=== PATIENT | male | born 1965 | race Caucasian/White ===

== ENCOUNTER 2019-03-28 13:33 | Day surgery (SDC) | payer OTHER, MEDICAID ==
[~2019-03-28] VITALS: Ht 170.8 cm; Wt 79.0 kg
[2019-03-28] VITALS (13 sets, daily range): BP systolic 149–183; BP diastolic 101–120
[2019-03-28] MEDS ORDERED: NS IV 1000 ML 1,000 ML IV SCH (14:00)
[2019-03-28] MEDS ORDERED: fentaNYL INJECTION 100 MCG/2 ML AMP IVP ONE (14:00)
--- NOTE | 2019-03-28 14:01 | ED GU-Male ---
General Chief Complaint: Male Reproductive Stated Complaint: HERNIA Source: patient Exam Limitations: no limitations History of Present Illness Date Seen by Provider: Mar 28, 2019 Time Seen by Provider: 13:45 Initial Comments Patient presents with 3 day progression of his right sided hernia. Patient with known existing, rather small right hernia which got suddenly bigger 3 days ago after lifting and since then has been Getting progressively more swollen and p ainful. History of left inguinal hernia repair approximately one year ago here at [place]. Allergies and Home Medications Allergies Coded Allergies: Penicillins (Unverified Allergy, Unknown, 03/28/19) Patient Home Medication List Home Medication List Reviewed: Yes Review of Systems Review of Systems Constitutional: no symptoms reported, see HPI; No dizziness, No fever; malaise; No weakness Respiratory: no symptoms reported; No cough, No short of breath Cardiovascular: No chest pain, No edema, No palpitations Gastrointestinal: abdominal pain (RLQ); No constipation, No diarrhea, No loss of appetite, No nausea, No vomiting Genitourinary: see HPI, other (swelling and pain right scrotum) Musculoskeletal: No back pain, No joint pain Skin: No change in color, No lesions, No rash Past Atqmiln-Utkbil-Qlsxzv Hx Past Med/Social Hx: Reviewed Nursing Past Med/Soc Hx Patient Social History Recent Foreign Travel: No Physical Exam Vital Signs Vital Signs - First Documented 03/28/19 13:36 Temp 36.3 Pulse 86 Resp 18 B/P (MAP) 144/92 (109) Pulse Ox 100 O2 Delivery Room Air Capillary Refill : Height, Weight, BMI Height: '" Weight: lbs. oz. kg; BMI Method: General Appearance: WD/WN, mild distress Cardiovascular: normal peripheral pulses, regular rate, rhythm, no edema Respiratory: chest non-tender, lungs clear, normal breath sounds Gastrointestinal: normal bowel sounds, soft, guarding (RLQ and inguinal. Gross swelling R inguinal and R scrotum, firm and severely tender. No change of skin color. No palpable testicle 2 to swelling and pain) Genital/Rectal: tenderness (see above) Back: normal inspection, no CVA tenderness Neurologic/Psychiatric: no motor/sensory deficits, normal mood/affect, oriented x 3 Skin: normal color, warm/dry Progress/Results/Core Measures Suspected Sepsis SIRS Temperature: Pulse: Respiratory Rate: Laboratory Tests 03/28/19 14:00: White Blood Count 4.8 Blood Pressure / Mean: Laboratory Tests 03/28/19 14:00: Creatinine 0.93, Platelet Count 196, Total Bilirubin 0.3 Results/Orders Lab Results Laboratory Tests Test 03/28/19 14:00 Range/Units White Blood Count 4.8 4.3-11.0 10^3/uL Red Blood Count 4.31 L 4.35-5.85 10^6/uL Hemoglobin 14.0 13.3-17.7 G/DL Hematocrit 42 40-54 % Mean Corpuscular Volume 97 80-99 FL Mean Corpuscular Hemoglobin 32 25-34 PG Mean Corpuscular Hemoglobin Concent 34 32-36 G/DL Red Cell Distribution Width 12.0 10.0-14.5 % Platelet Count 196 130-400 10^3/uL Mean Platelet Volume 9.5 7.4-10.4 FL Neutrophils (%) (Auto) 60 42-75 % Lymphocytes (%) (Auto) 26 12-44 % Monocytes (%) (Auto) 11 0-12 % Eosinophils (%) (Auto) 2 0-10 % Basophils (%) (Auto) 1 0-10 % Neutrophils # (Auto) 2.9 1.8-7.8 X 10^3 Lymphocytes # (Auto) 1.3 1.0-4.0 X 10^3 Monocytes # (Auto) 0.5 0.0-1.0 X 10^3 Eosinophils # (Auto) 0.1 0.0-0.3 10^3/uL Basophils # (Auto) 0.1 0.0-0.1 10^3/uL Sodium Level 140 135-145 MMOL/L Potassium Level 4.0 3.6-5.0 MMOL/L Chloride Level 101 98-107 MMOL/L Carbon Dioxide Level 26 21-32 MMOL/L Anion Gap 13 5-14 MMOL/L Blood Urea Nitrogen 15 7-18 MG/DL Creatinine 0.93 0.60-1.30 MG/DL Estimat Glomerular Filtration Rate > 60 BUN/Creatinine Ratio 16 Glucose Level 85 70-105 MG/DL Calcium Level 9.7 8.5-10.1 MG/DL Corrected Calcium 9.9 8.5-10.1 MG/DL Total Bilirubin 0.3 0.1-1.0 MG/DL Aspartate Amino Transf (AST/SGOT) 78 H 5-34 U/L Alanine Aminotransferase (ALT/SGPT) 88 H 0-55 U/L Alkaline Phosphatase 63 40-136 U/L Total Protein 7.6 6.4-8.2 GM/DL Albumin 3.8 3.2-4.5 GM/DL My Orders Orders - NOEMY PÉREZ DO Urinalysis (03/28/19 13:35) Us Scrotum (Testicle) [id number] (03/28/19 13:45) Ed Iv/Invasive Line Start (03/28/19 13:46) Cbc With Automated Diff (03/28/19 13:46) Comprehensive Metabolic Panel (03/28/19 13:46) Fentanyl Injection (Sublimaze Injection (03/28/19 14:00) Ns Iv 1000 Ml (Sodium Chloride 0.9%) (03/28/19 14:00) Vital Signs/I&O 03/28/19 13:36 Temp 36.3 Pulse 86 Resp 18 B/P (MAP) 144/92 (109) Pulse Ox 100 O2 Delivery Room Air Capillary Refill : Departure Communication (Admissions) Time/Spoke to Consulting Phy: 14:[address] Mathur to discuss history and presentation of Right inguinal hernia. Patient recently ate @ 1130 this morning......will delay surgery until 1930 shaneka mendieta plans to DC home tomorrow. Currently under custody of Lori mendieta presumed plans to release him prior to transfer/ admission/ surgery. Impression Primary Impression: Irreducible right inguinal hernia Disposition: ADMITTED INPATIENT Condition: Stable/Unchanged Admissions Decision to Admit Reason: Admit from ER (General) Decision to Admit/Date: Mar 28, 2019 Time/Decision to Admit Time: 14:10 NOEMY PÉREZ DO Mar 28, 2019 14:01
[2019-03-28 14:11] LABS: HEMATOCRIT 42 % (40-54); MEAN CORPUSCULAR HEMOGLOBIN 32 PG (25-34); MEAN CORPUSCULAR VOLUME 97 FL (80-99); WHITE BLOOD COUNT 4.8 10^3/uL (4.3-11.0)
[2019-03-28 14:12] LABS: BASOPHILS % (AUTO) 1 % (0-10); EOSINOPHILS # (AUTO) 0.1 10^3/uL (0.0-0.3); EOSINOPHILS % (AUTO) 2 % (0-10); LYMPHOCYTES # (AUTO) 1.3 X 10^3 (1.0-4.0); LYMPHOCYTES % (AUTO) 26 % (12-44); MEAN CORPUSCULAR HGB CONC 34 G/DL (32-36); MEAN PLATELET VOLUME 9.5 FL (7.4-10.4); MONOCYTES # (AUTO) 0.5 X 10^3 (0.0-1.0); MONOCYTES % (AUTO) 11 % (0-12); NEUTROPHILS # (AUTO) 2.9 X 10^3 (1.8-7.8); NEUTROPHILS % (AUTO) 60 % (42-75); PLATELET COUNT 196 10^3/uL (130-400)
[2019-03-28 14:13] LABS: BASOPHILS # (AUTO) 0.1 10^3/uL (0.0-0.1)
--- NOTE | 2019-03-28 14:27 | Diagnostic Imaging Report ---
PROCEDURE: US Scrotum. TECHNIQUE: Multiple real-time grayscale images were obtained over the scrotum in various projections bilaterally. INDICATION: Hernia. FINDINGS: A right-sided hernia extends into the upper scrotal sac with peristalsing loops of bowel. Right testicle appears normal. The epididymis is normal. No orchitis or torsion. IMPRESSION: Right inguinal hernia extending into the upper scrotal sac on the right confirmed. Normal appearance of the testicle and epididymis. Dictated by: Dictated on workstation # [id number]
[2019-03-28 14:38] LABS: ALKALINE PHOSPHATASE 63 U/L (40-136); BILIRUBIN,TOTAL 0.3 MG/DL (0.1-1.0); BUN/CREATININE RATIO 16; CALCIUM 9.7 MG/DL (8.5-10.1); CARBON DIOXIDE 26 MMOL/L (21-32); CHLORIDE 101 MMOL/L (98-107); CREATININE SERUM 0.93 MG/DL (0.60-1.30); GFR ESTIMATED > 60; GLUCOSE 85 MG/DL (70-105); SODIUM 140 MMOL/L (135-145)
[2019-03-28 14:39] LABS: ALANINE AMINOTRANSFERASE 88 U/L (0-55); ALBUMIN 3.8 GM/DL (3.2-4.5); TOTAL PROTEIN 7.6 GM/DL (6.4-8.2)
--- NOTE | 2019-03-28 16:50 | NUR ---
Elier Marquez] admitted to room 427-1, with an admitting diagnosis of L inguinal hernia, on 03/28/19 from via , accompanied by .ELIER MARQUEZ introduced to surroundings, call light, bed controls, phone, TV, temperature control, lights, meal times, smoking policy, visitor policy, side rail policy, bathrooms and showers. Patient Rights given to patient in the handbook.ELIER MARQUEZ verbalizes understanding that [facility] is not responsible for the loss or damage to any personal effects or valuables that are kept in the patients posession during their hospitalization. ELIER MARQUEZ verbalizes understanding of Interdisciplinary Patient Education. Patient and/or family were informed about the Rapid Response Team and its purpose.
[2019-03-28] MEDS ORDERED: CATHETER FLUSH 10 ML SYR IV PRN (17:00)
[2019-03-28] MEDS: LACTATED RINGERS 1,000 ML IV SCH (17:23)
[2019-03-28] MEDS: fentaNYL INJECTION 100 MCG/2 ML AMP IV PRN ×2 (17:23→23:11)
[2019-03-28] MEDS ORDERED: FLU QUADRIvalent (5+ YOA) 2019-2020 (AFLURIA) 0.5 ML IM ONE (17:30)
[2019-03-28] MEDS ORDERED: BUP/EPI 0.5% 1:200,000 (SENSORCAINE) 30 ML VIAL ONE (17:57)
[2019-03-28] MEDS ORDERED: SUCCINYLCHOLINE INJ 100 MG/5 ML SYR ONE (18:00)
[2019-03-28] MEDS ORDERED: LIDOCAINE PF 2% 5 ML (XYLOCAINE) VIAL ONE (18:00)
[2019-03-28] MEDS ORDERED: ROCURONIUM 10 MG/ML 5 ML SYRINGE IV ONE (18:00)
[2019-03-28] MEDS ORDERED: ceFAZolin 2 GM/50 ML NS 50 ML IV NR (18:00)
[2019-03-28] MEDS ORDERED: ONDANSETRON 4 MG/2 ML (SDV) Z0FRAN ONE ×2 (18:00→18:19)
[2019-03-28] MEDS ORDERED: proPOfol 200 MG/20 ML (DIPRIVAN) VIAL IV ONE (18:00)
[2019-03-28] MEDS ORDERED: fentaNYL INJECTION 100 MCG/2 ML AMP ONE (18:01)
[2019-03-28] MEDS ORDERED: MIDAZOLAM 2 MG/2 ML (VERSED) VIAL ONE (18:01)
[2019-03-28] MEDS ORDERED: DEXAMETHASONE 10 MG/ML (DECADRON) 1 ML VIAL ONE (18:01)
--- NOTE | 2019-03-28 18:07 | History & Physical-Surgical ---
History of Present Illness History of Present Illness Reason for visit/HPI Surgery asked to consult on pt regarding Incarcerated RIH. HPI per ED: Patient presents with 3 day progression of his right sided hernia. Patient with known existing, rather small right hernia which got suddenly bigger 3 days ago after lifting and since then has been Getting progressively more swollen and painful. History of left inguinal hernia repair approximately one year ago here at [place]. When I spoke to pt this evening he states that prior to a week ago he is not even sure there was a hernia on the right; although "maybe a small bulge". He states has not had any pain in that area; but this reminds him exactly like when he had the Left inguinal hernia. He rated pain as 8 out of 10 at its worst, but now after pain meds it is a 3. He states pain radiates down into his testicle. Movement, coughing and lifting makes the pain worse and lying still makes it better. Date of Admission Mar 28, 2019 at 15:26 Time Seen by a Provider: 17:37 I consulted on this patient on 03/28/19 18:01 Attending Physician Noe Ha DO Admitting Physician Yeyo Sims MD Consult Allergies and Home Medications Allergies Coded Allergies: Penicillins (Unverified Allergy, Unknown, 03/28/19) Patient Home Medication List Home Medication List Reviewed: Yes Past Rkabglk-Kqoxce-Nfbuez Hx Patient Social History Alcohol Use: Regular Use Number of Drinks Today: 4 Recreational Drug Use: No Smoking Status: Current Everyday Smoker Type Used: Cigarettes 2nd Hand Smoke Exposure: No Recent Foreign Travel: No Contact w/Someone Who Travel: No Recent Infectious Disease Expo: No Recent Hopitalizations: No Physical Abuse Screen: No Sexual Abuse: No Immunizations Up To Date PED Vaccines UTD: No Seasonal Allergies Seasonal Allergies: No Surgeries History of Surgeries: Yes (HERNIA LEFT SIDE) Respiratory History of Respiratory Disorde: No Cardiovascular History of Cardiac Disorders: No Neurological History of Neurological Disord: No Genitourinary History of Genitourinary Disor: No Gastrointestinal History of Gastrointestinal Di: No Gastrointestinal Disorders: Hiatal Hernia Musculoskeletal History of Musculoskeletal Dis: No Endocrine History of Endocrine Disorders: No HEENT History of HEENT Disorders: Yes (Tonsilectomy) Loss of Vision: Denies Hearing Impairment: Denies Cancer History of Cancer: No Psychosocial History of Psychiatric Problem: No Integumentary History of Skin or Integumenta: No Blood Transfusions History of Blood Disorders: No Adverse Reaction to a Blood Tr: No Family Medical History Significant Family History: Cancer (Denies), Hypertension (both parents) Review of Systems Constitutional: No chills, No diaphoresis, No malaise EENTM: No blurred vision, No double vision, No mouth pain, No mouth swelling, No epistaxis, No throat swelling Respiratory: No cough, No dyspnea on exertion, No short of breath Cardiovascular: No chest pain, No edema, No palpitations Gastrointestinal: abdominal pain; No loss of appetite, No nausea, No vomiting Genitourinary: No dysuria, No frequency, No hematuria Musculoskeletal: No joint pain, No joint swelling, No muscle stiffness Skin: No change in color, No change in hair/nails Psychiatric/Neurological: Denies Anxiety, Denies Depressed, Denies Seizure, Denies Tremors pt denies any hx of abnormal bleeding or bruising Physical Exam Vital Signs Vital Signs - First Documented 03/28/19 13:36 Temp 36.3 Pulse 86 Resp 18 B/P (MAP) 144/92 (109) Pulse Ox 100 O2 Delivery Room Air Capillary Refill : Less Than 3 Seconds Height, Weight, BMI Height: '" Weight: lbs. oz. kg; 27.08 BMI Method: General Appearance: No Apparent Distress, WD/WN Eyes: Bilateral Eye PERRL, Bilateral Eye EOMI HEENT: Pharynx Normal, Moist Mucous Membranes; No Scleral Icterus (L), No Scleral Icterus (R) Neck: Full Range of Motion, Non Tender, Supple Respiratory: Chest Non Tender, Lungs Clear, Normal Breath Sounds, No Accessory Muscle Use, No Respiratory Distress Cardiovascular: Regular Rate, Rhythm, No Edema, No Murmur Gastrointestinal: No Organomegaly, Soft, Hernia (incarcerated RIH) Back: No CVA Tenderness, No Vertebral Tenderness Extremity: Normal Capillary Refill, Normal Inspection, Normal Range of Motion, Non Tender, No Calf Tenderness, No Pedal Edema Neurologic/Psychiatric: Alert, Oriented x3, No Motor/Sensory Deficits, Normal Mood/Affect, 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 Skin: Normal Color, Warm/Dry Lymphatic: No Adenopathy (neck, axilla or groin) Data Review Labs Laboratory Tests 03/28/19 14:00: White Blood Count 4.8, Red Blood Count 4.31L, Hemoglobin 14.0, Hematocrit 42, Mean Corpuscular Volume 97, Mean Corpuscular Hemoglobin 32, Mean Corpuscular Hemoglobin Concent 34, Red Cell Distribution Width 12.0, Platelet Count 196, Mean Platelet Volume 9.5, Neutrophils (%) (Auto) 60, Lymphocytes (%) (Auto) 26, Monocytes (%) (Auto) 11, Eosinophils (%) (Auto) 2, Basophils (%) (Auto) 1, Neutrophils # (Auto) 2.9, Lymphocytes # (Auto) 1.3, Monocytes # (Auto) 0.5, Eosinophils # (Auto) 0.1, Basophils # (Auto) 0.1, Sodium Level 140, Potassium Level 4.0, Chloride Level 101, Carbon Dioxide Level 26, Anion Gap 13, Blood Urea Nitrogen 15, Creatinine 0.93, Estimat Glomerular Filtration Rate > 60, BUN/C reatinine Ratio 16, Glucose Level 85, Calcium Level 9.7, Corrected Calcium 9.9, Total Bilirubin 0.3, Aspartate Amino Transf (AST/SGOT) 78H, Alanine Aminotransferase (ALT/SGPT) 88H, Alkaline Phosphatase 63, Total Protein 7.6, Albumin 3.8 Radiology PROCEDURE: US Scrotum. TECHNIQUE: Multiple real-time grayscale images were obtained over the scrotum in various projections bilaterally. INDICATION: Hernia. FINDINGS: A right-sided hernia extends into the upper scrotal sac with peristalsing loops of bowel. Right testicle appears normal. The epididymis is normal. No orchitis or torsion. IMPRESSION: Right inguinal hernia extending into the upper scrotal sac on the right confirmed. Normal appearance of the testicle and epididymis. Dictated by: Dictated on workstation # [id number] Dict: 03/28/19 1422 Trans: 03/28/19 1709 [id number] Interpreted by: CHUCKIE MILLIGAN Assessment/Plan Assessment/Plan Admission Diagonsis Incarcerated [facility] Admission Status: Observation Assessment/Plan Incarcerated [facility] Plan is npo, IV fluids, pain control, anti-emetics and to OR for right inguinal hernia repair. Procedure will be done open with probable mesh placement. We are doing surgery now because there is a risk of strangulation with so much bowel through the inguinal ring; it has been sudden in onset and not gradual. Procedure discussed with pt; risks and complications not limited to pain, bleeding, infection, scar, damage to bowel and need for further procedure. All questions answered to his satisfaction. Will probably be able to go home tomorrow. Clinical Quality Measures DVT/VTE Risk/Contraindication: Risk Factor Score Per Nursin RFS Level Per Nursing on Admit: 2=Moderate NOE HA DO Mar 28, 2019 18:06
--- NOTE | 2019-03-28 18:08 | NUR ---
Surgical consent signed and in the chart. Nasal swabs obtained and sent to lab.
[2019-03-28] MEDS ORDERED: morphine INJ 10 MG/ML 1ML (SYR OR VIAL) ONE (18:19)
[2019-03-28] MEDS: LACTATED RINGERS 1,000 ML IV PRN ×2 (19:56→20:47)
[2019-03-28] MEDS: CLINDAMYCIN 600 MG/4ML (CLEOCIN) VIAL ONE (20:05)
[2019-03-28] MEDS ORDERED: CLINDAMYCIN 600 MG/50 ML IVPB 50 ML IV NR (20:15)
[2019-03-28] MEDS ORDERED: GLYCOPYRROLATE 0.2 MG/ML (ROBINUL) 2 ML VIAL ONE (20:54)
[2019-03-28] MEDS ORDERED: NEOSTIGMINE 3 MG/3 ML VIAL ONE (20:54)
[2019-03-28] MEDS ORDERED: SEVOFLURANE (ULTANE) 15 ML INHAL SOLN ONE ×3 (20:55→20:58)
[2019-03-28] MEDS ORDERED: LACTATED RINGERS 1,000 ML IV SCH (20:57)
--- NOTE | 2019-03-28 20:57 | Progress Note-Post Operative ---
Post-Operative Progess Note Surgeon (s)/Cupola Tapper Helper (s) Surgeon YANELI HA DO Cupola Tapper Helper: Ernst Pre-Operative Diagnosis Incarcerated RIH Post-Operative Diagnosis Incarcerated indirect RIH with direct component cord lipoma Procedure & Operative Findings Date of Procedure 03/28/19 Procedure Performed/Findings RIH with mesh Exc of cord lipoma Anesthesia Type GET Estimated Blood Loss Estimated blood loss (mL): less than 5ml Specimens/Packing Specimens Removed hernia sac, cord lipoma YANELI HA DO Mar 28, 2019 20:57
[2019-03-28] MEDS ORDERED: ONDANSETRON 4 MG/2 ML (SDV) Z0FRAN IVP PRN ×2 (21:00→21:30)
[2019-03-28] MEDS ORDERED: LABETALOL HCL 20 MG/4 ML VIAL ONE (21:28)
[2019-03-28] MEDS ORDERED: morphine INJ 10 MG/ML 1ML (SYR OR VIAL) IVP ONE (21:30)
[2019-03-28] MEDS ORDERED: MEPERIDINE (DEMEROL) INJ 50 MG/ML IVP ONE (21:30)
[2019-03-28] MEDS ORDERED: PROMETHAZINE INJ 25 MG/ML (PHENERGAN) AMP IVP ONE (21:30)
[2019-03-28] MEDS ORDERED: HYDROmorphone 2 MG/ML VIAL (DILAUDID) IV ONE (21:30)
[2019-03-28] MEDS: LABETALOL HCL 100 MG/20 ML VIAL IV PRN ×2 (22:00→22:10)
--- NOTE | 2019-03-28 23:00 | NUR ---
PT RETURNED FROM PACU AT 2235 ACCOMPANIED BY PACU NURSE AND PCT. RC CAPPS GAVE THIS RN REPORT. RC CAPPS REPORTED THAT SHE HAD A HARD TIME CONTROLLING HIS BP IN PACU AND HAD ADMIN LABETALOL SEVERAL TIMES IV. PT IS ALERT AND ORIENTED, HE HAD 100ML LEFT OF NS FROM PACU ALONG. DR HA PUT ALL ORDERS IN FOR PT POST OP. HE IS NOW RESTING IN BED AND WATCHING TV. THIS RN STARTED HIM ON CLEAR LIQUID DIET AND HE HAS BEEN TOLERATING SPRITE AND BROTH WITHOUT ANY N/V.
[2019-03-29 00:10] VITALS: BP 153/98
--- NOTE | 2019-03-29 01:57 | OPERATIVE REPORT ---
DATE OF SERVICE: PREOPERATIVE DIAGNOSIS: Incarcerated right inguinal hernia. POSTOPERATIVE DIAGNOSES: 1. Incarcerated indirect right inguinal hernia with direct component. 2. Cord lipoma. PROCEDURES: 1. Right inguinal herniorrhaphy with mesh placement. 2. Excision of cord lipoma. SURGEON: Noe Mathur DO. SECURITY OPERATIONS SPECIALIST: Bharat Dukes DO. ANESTHESIA: General endotracheal tube. SPECIMENS: 1. Hernia sac. 2. Cord lipoma. BLOOD LOSS: Less than 5 mL. FLUIDS: Per anesthesia. POSTOPERATIVE CONDITION: Stable. INDICATION FOR PROCEDURE: The patient is a 53-year-old male, who had increasing pain and bulge in the right inguinal region, had an ultrasound, which showed intestine stuck in the right scrotum. FINDINGS: The patient had a very large indirect inguinal hernia with some intestine that was easily reduced and had a large cord lipoma as well. PROCEDURE NOTE: After informed consent was obtained, the patient was brought to the operating room, placed on the table in supine position, sterilely prepped and draped in normal fashion. Local lidocaine was used to perform an ilioinguinal nerve block as well as pubic tubercle block and infiltrated the right inguinal region with local, then made an incision with #15 blade, carried down through the skin and subcutaneous tissue, then deepened down through skin and subcutaneous tissue with Bovie electrocautery down to the fascia of the external oblique. External oblique fascia infiltrated with local, then incised through the external inguinal ring with Bovie electrocautery, then able to grasp the cord and cord structures and get under them at the pubic tubercle, placed a [place] drain, pulled in inferolateral direction, started teasing off the hernia sac by looking superiorly, medially; able to find the hernia sac and carefully lift this up, taking it off the cord and cord structures, watched some tissue retract back into the abdomen, able to get the cord and hernia sac off and opened it up and then continued to free it up off the cord and cord structures. It was very large indirect hernia sac, could see some bowel, grasped this and pulled this up into the inguinal canal, it looked viable. No signs of any kind of strangulation. At this point, I then elected to do an 0 Vicryl pursestring suture to tie the hernia sac off, did a pursestring suture and then tied around the hernia sac two more times with the 0 Vicryl suture, then cut the hernia sac off with Bovie electrocautery, watched the sac retracted in. There was a cord lipoma. This was removed and passed off table to make it easier, also then noted a direct floor defect, elected to close the floor of the inguinal canal with 0 Vicryl [id number] suture and then a 2-0 Vicryl [id number] suture to close the floor, then placed a right-sided Parietex mesh, trimmed to fit into the canal, sutured to pubic tubercle and encircled the cord with a precut hole, laid in very nicely, placed the rest of the mesh up under the external oblique fascia. Copiously irrigated with normal saline, suctioned this out and then elected to close the external oblique fascia with a 3-0 Vicryl running suture, thereby recreating the external inguinal ring and internal inguinal ring had been recreated by the mesh. Flaquita's fascia was then closed with 3-0 Vicryl 2 interrupted sutures and then closed the skin with 4-0 undyed Monocryl in running subcuticular fashion. Area was cleaned and dried and Dermabond placed as well as bandage. The patient tolerated the procedure. Sponge and needle count correct at the end of the case. Dr. Dukes assisted in this case, helping to make incisions, close incisions, identify anatomy and hold anatomy out of the way. Job ID: [id number] DocumentID: [id number] Dictated Date: 03/28/2019 21:28:28 Signal Manager Date: 03/29/2019 01:56:09 Dictated By: NOE MATHUR DO
[2019-03-29] MEDS: LACTATED RINGERS 1,000 ML IV SCH ×2 (01:59→10:22)
[2019-03-29 04:00] VITALS: BP 156/102
[2019-03-29] MEDS: HYDROcodone/APAP 7.5 MG/325 MG (LORTAB, LORCET PLUS) TABLET PO PRN ×2 (05:13→10:08)
[2019-03-29 05:47] VITALS: BP 138/92
--- NOTE | 2019-03-29 07:49 | Anesthesia-General Post-Op ---
General Patient Condition Mental Status/LOC: Same as Preop Cardiovascular: Satisfactory Nausea/Vomiting: Absent Respiratory: Satisfactory Pain: Controlled Complications: Absent Post Op Complications Complications None Follow Up Care/Instructions Patient Instructions None needed. Anesthesia/Patient Condition Patient Condition Patient is doing well, no complaints, stable vital signs, no apparent adverse anesthesia problems. No complications reported per nursing. RENEE FINN CRNA Mar 29, 2019 07:49
[2019-03-29] MEDS ORDERED: PANTOPRAZOLE 40 MG (PROTONIX) VIAL IVP SCH (09:00)
--- NOTE | 2019-03-29 09:43 | Progress Note - Surgery ---
Subjective Time Seen by a Provider: 08:30 Subjective/Events-last exam Pt seen and examined, tolerating diet and pain well controlled. Review of Systems General: No Chills, No Night Sweats Pulmonary: No Dyspnea, No Cough Gastrointestinal: No: Nausea, Vomiting Objective Exam Vital Signs Date Time Temp Pulse Resp B/P (MAP) Pulse Ox O2 Delivery O2 Flow Rate FiO2 03/29/19 08:00 98 Room Air 5.00 03/29/19 05:47 138/92 (107) 03/29/19 04:00 36.9 84 16 156/102 (120) 98 Room Air 03/29/19 00:10 36.5 86 18 153/98 (116) 98 Room Air 03/28/19 22:35 36.6 72 16 149/101 (117) 96 Room Air 03/28/19 22:35 Room Air 03/28/19 22:30 36.4 16 153/109 (124) 96 Room Air 03/28/19 22:20 16 153/106 (122) 100 Room Air 03/28/19 22:15 Simple Mask 5 03/28/19 22:10 16 161/115 (130) 100 03/28/19 22:00 Simple Mask 5 03/28/19 22:00 16 166/116 (133) 100 Room Air 03/28/19 21:50 16 173/120 (137) 100 Simple Mask 5 03/28/19 21:45 Simple Mask 5 03/28/19 21:40 16 166/114 (131) 100 Simple Mask 8 03/28/19 21:30 Simple Mask 8 03/28/19 21:30 16 170/112 (131) 100 Simple Mask 8 03/28/19 21:20 16 176/118 (137) 100 Simple Mask 8 03/28/19 21:13 36.1 16 175/120 (138) 100 Simple Mask 8 03/28/19 21:13 Simple Mask 8 03/28/19 19:51 36.7 85 18 164/110 (128) 100 Room Air 03/28/19 19:30 100 Room Air 03/28/19 17:00 99 Room Air 03/28/19 16:50 36.8 81 18 183/115 99 Room Air 03/28/19 16:50 36.8 81 18 183/115 (137) 99 Room Air 1/27/20 16:11 36.2 82 18 124/68 99 Room Air 03/28/19 13:36 36.3 86 18 144/92 (109) 100 Room Air I & O 03/29/19 07:00 Intake Total 2550 ml Balance 2550 ml Capillary Refill : Less Than 3 Seconds General Appearance: No Apparent Distress, WD/WN Respiratory: Chest Non Tender, Lungs Clear, Normal Breath Sounds, No Accessory Muscle Use, No Respiratory Distress Cardiovascular: Regular Rate, Rhythm, No Murmur Gastrointestinal: other (incision is c/d/i) Results Lab Laboratory Tests 03/28/19 14:00: White Blood Count 4.8, Red Blood Count 4.31L, Hemoglobin 14.0, Hematocrit 42, Mean Corpuscular Volume 97, Mean Corpuscular Hemoglobin 32, Mean Corpuscular Hemoglobin Concent 34, Red Cell Distribution Width 12.0, Platelet Count 196, Mean Platelet Volume 9.5, Neutrophils (%) (Auto) 60, Lymphocytes (%) (Auto) 26, Monocytes (%) (Auto) 11, Eosinophils (%) (Auto) 2, Basophils (%) (Auto) 1, Neutrophils # (Auto) 2.9, Lymphocytes # (Auto) 1.3, Monocytes # (Auto) 0.5, Eosinophils # (Auto) 0.1, Basophils # (Auto) 0.1, Sodium Level 140, Potassium Level 4.0, Chloride Level 101, Carbon Dioxide Level 26, Anion Gap 13, Blood Urea Nitrogen 15, Creatinine 0.93, Estimat Glomerular Filtration Rate > 60, BUN/Creatinine Ratio 16, Glucose Level 85, Calcium Level 9.7, Corrected Calcium 9.9, Total Bilirubin 0.3, Aspartate Amino Transf (AST/SGOT) 78H, Alanine Aminotransferase (ALT/SGPT) 88H, Alkaline Phosphatase 63, Total Protein 7.6, Albumin 3.8 Assessment/Plan Assessment/Plan Assessment/Plan S/P RIH repair D/C IV and D/C home Clinical Quality Measures DVT/VTE Risk/Contraindication: Risk Factor Score Per Nursin RFS Level Per Nursing on Admit: 2=Moderate YANELI HA DO Mar 29, 2019 09:43
--- NOTE | 2019-03-29 09:45 | Discharge Inst-Surgical ---
Discharge Inst-Surgical Depart Medication/Instructions New, Converted or Re-Newed RX: Other (take ibuprofen or tylenol for pain) Patient Instructions Follow up Appt: Make appointment for 1 week. [phone] Instructions: No lifting greater than 20 pounds. No strenuous activity. May shower in 24 hours, no tub bath or soaking. Use incentive spirometer at home as directed. No Smoking Skin/Wound Care: May remove bandages in am. You need to leave the Dermabond on incision it will fall off on it's own. Symptoms to Report: Appetite Changes, Extremity Discoloration, Numbness/Tingling, Swelling Increased, Bleeding Excessive, Eyesight Changes, Pain Increased, Urine Color Change, Constipation(Persistent), Fever over 101 degree F, Pain/Pressure in chest, Urinating Difficulty, Cough Up/Vomit Blood, Heart Beat Irreg/Pounding, Pain/Pressure in jaw, Cramps in feet or legs, Lightheadedness, Pain/Pressure in shoulder, Diarrhea(Persistent), Memory Changes Suddenly, Questions/Concerns, Weight gain consecutive days, Dizziness/Fainting, Nausea/Vomiting, Shortness of Breath, Weight gain over 2 pounds If questions or concerns contact your physician Or seek help at emergency department. Activity Activity as Tolerated: Yes Activity Instructions: Avoid Stress to Incision Driving Instructions: You May Drive Diet Discharge Diet: No Restrictions Diet After 24 Hours: Clear Liquid if Nauseous If Any Problems/Questions/Issu: Contact Your Physician, Go to Emergency Room Skin/Wound Care Infection Signs and Symptoms: Increased Redness, Foul Odor of Wound, Increased Drainage, Skin Itchy or Has a Rash, Increased Swelling, Temperature Above 101 F Bathing Instructions: Shower Stitches/[place]/Dermabond Dis: YANELI Cesar DO Mar 29, 2019 09:45
--- NOTE | 2019-03-29 10:20 | NUR ---
MARIO CHAMBERS demonstrates understanding of discharge instructions and accurately returns instructions upon questioning. Copy of Post-Discharge Instructions given to patient. Patient refused flu vaccine at this time. Patients belongings returned to . Patient discharged from [facility] on 03/29/19 at 1020. MARIO CHAMBERS left floor via , accompanied by .
[2019-03-29] MEDS ORDERED: ENOXAPARIN 40 MG/0.4 ML (LOVENOX) SYR SC SCH (21:00)
--- NOTE | 2019-04-05 11:28 | Physician Query-Final Dx ---
MICKI LADD 04/05/19 1128: Final Diagnosis Give Final Diagnosis Please give Final Diagnosis YANELI HA DO 04/06/19 1511: Final Diagnosis Give Final Diagnosis Incarcerated Right Indirect inguinal hernia, small direct component Cord lipoma MICKI LADD Apr 05, 2019 11:28 YANELI HA DO Apr 06, 2019 15:11
== END 2019-03-29 10:25 | disposition home or self-care (01) ==
LOC: ER FS 13:35 → 4TH 15:26 → SDC 15:26 → UNDOADMIN 15:26 → 4TH 15:26 → UNDODISIN 03-29 10:25 → SDC 03-29 10:25
PROVIDERS: ATTEND Surgery
DX: K40.31 Unilateral inguinal hernia, with obstruction, without gangrene, recurrent (principal); D17.6 Benign lipomatous neoplasm of spermatic cord; F17.210 Nicotine dependence, cigarettes, uncomplicated; Z88.0 Allergy status to penicillin; Z82.49 Family history of ischemic heart disease and other diseases of the circulatory system
CPT/HCPCS: 36415; 76870; 80053; 85025; 87081; 88302; 94664; 96374

== ENCOUNTER → 2020-12-07 | Outpatient (CLI) | payer MEDICAID | LOC: LAB FS 10:00 | PROVIDERS: ATTEND Orthopaedic Surgery | DX: Z01.812 Encounter for preprocedural laboratory examination (principal); Z20.822 Contact with and (suspected) exposure to COVID-19 | CPT/HCPCS: 87635 ==

== ENCOUNTER 2021-09-22 09:13 | Emergency (ER) | payer MEDICAID ==
[2021-09-22] MEDS ORDERED: KETOROLAC 30 MG/ML VIAL IVP STA (09:32)
[2021-09-22] MEDS ORDERED: CLINDAMYCIN 600 MG/50 ML IVPB 50 ML IV STA (09:32)
[2021-09-22] MEDS ORDERED: NS IV 1000 ML 1,000 ML IV STA (09:32)
--- NOTE | 2021-09-22 09:40 | ED Lower Extremity ---
General Chief Complaint: Lower Extremity Stated Complaint: LT LEG SWELLING Nursing Triage Note: Patient presents to the ED with c/o left lower leg redness and swelling. Reports that he was out mowing the yard yesterday and noticed the swelling when he came in. Denies any known injury. Does report that he had some glass in his knee 3 days ago. Denies any pain. Source: patient History of Present Illness Date Seen by Provider: Sep 22, 2021 Time Seen by Provider: 09:16 Initial Comments 55 yo male presenting by private vehicle with complaint of swelling, redness and increased warmth to the LLE. He felt that this started yesterday for him while he was out mowing the yard. he is waiting to get a hip replacement on the right so he reports he usually favors that side and depends on the Left side more. He started having discomfort while mowing so he went inside and noticed his knee and leg felt "puffy through his jeans. When he looked at his leg it was swollen. he reports taking a shower and elevating the leg and it got a little better but was still swollen this am so he went to Urgent Care. He denies having problems like this in the past and denies history of blood clots or cellulitis. He did step on some glass a few days ago but thinks he got it all out of his left foot and he had some glass in the skin of his left knee over a week ago. he was feeling "really sick" on and Thursday and states he felt like he had fever and chills and cough and did not feel well. He has discomfort in his leg when he walks or bears weight but otherwise he just feels pressure and tightness in his leg from the swelling. Onset: yesterday (noticed swelling yesterday but denies injury yesterday. reports stepping on glass 3-4 days ago) Severity: moderate Pain/Injury Location: left leg, left knee, left foot, left ankle Method of Injury: unknown Modifying Factors: Worse With Movement (walking/bearing weight causes discomfort); Improves With Other (mild improvement in swelling with elevation) Allergies and Home Medications Allergies Coded Allergies: Penicillins (Unverified Allergy, Unknown, 03/28/19) Patient Home Medication List Home Medication List Reviewed: Yes Clindamycin HCl (Clindamycin HCl) 300 Mg Capsule, 300 MG PO Q6H Prescribed by: EILEEN KEANERT on 09/22/21 1213 Rivaroxaban (Xarelto Tablet) 15 Mg Tablet, 15 MG PO BID Prescribed by: EILEEN KEANERT on 09/22/21 1212 Review of Systems Constitutional: chills (2-3- days prior), fever (subjective 2-3 days prior) EENTM: no symptoms reported Respiratory: no symptoms reported Cardiovascular: no symptoms reported Gastrointestinal: no symptoms reported Genitourinary: no symptoms reported Musculoskeletal: see HPI Skin: see HPI, change in color (redness and warmth with swelling to LLE up past his knee) Psychiatric/Neurological: No Symptoms Reported Past Bjskxuj-Msyojb-Yuuvsm Hx Patient Social History Tobacco Use?: Yes Tobacco type used: Cigarettes Smoking Status: Current Someday Smoker Smokeless Tobacco Frequency: Current Everyday User Use of E-Cig and/or Vaping dev: No Substance use?: No Alcohol Use?: Yes Alcohol type: Beer Alcohol Frequency: Daily Pt feels they are or have been: No Immunizations Up To Date PED Vaccines UTD: No First/Initial COVID19 Vaccinat: Not currently vaccinated Seasonal Allergies Seasonal Allergies: No Past Medical History Surgery/Hospitalization HX: HTN Surgeries: Yes (HERNIA LEFT SIDE) Respiratory: No Cardiac: Yes Hypertension Neurological: No Genitourinary: No Gastrointestinal: No Hiatal Hernia Musculoskeletal: Yes Arthritis Endocrine: No HEENT: Yes (Tonsilectomy) Loss of Vision: Denies Hearing Impairment: Denies Cancer: No Psychosocial: No Integumentary: No Blood Disorders: No Adverse Reaction/Blood Tranf: No Family Medical History Patient reports no known family medical history. Cancer, Hypertension Physical Exam Vital Signs Vital Signs - First Documented 09/22/21 09:15 Temp 36.5 Pulse 104 Resp 16 B/P (MAP) 191/119 (143) Pulse Ox 97 O2 Delivery Room Air Capillary Refill : Less Than 3 Seconds Height, Weight, BMI Height: '" Weight: lbs. oz. kg; 27.08 BMI Method: General Appearance: no apparent distress HEENT: PERRL/EOMI, pharynx normal Neck: non-tender, full range of motion, supple, normal inspection Cardiovascular: normal peripheral pulses, regular rate, rhythm Respiratory: chest non-tender, lungs clear, normal breath sounds, no respiratory distress, no accessory muscle use Gastrointestinal: normal bowel sounds, non tender, soft, no pulsatile mass Legs: left leg swelling (redness and swelling from foot up just above his knee. Denies pain with palpation or movement. Increased warmth. 2+ pitting edema) Neurologic/Tendon: normal sensation, normal motor functions, normal tendon functions Neurologic/Psychiatric: alert, oriented x 3 Skin: warm/dry, other (erythema to LLE from foot to above the knee with some redness streaking up thigh medially) Progress/Results/Core Measures Results/Orders Lab Results Laboratory Tests Test 09/22/21 09:35 Range/Units White Blood Count 5.2 4.3-11.0 10^3/uL Red Blood Count 3.71 L 4.30-5.52 10^6/uL Hemoglobin 11.6 L 13.3-17.7 g/dL Hematocrit 34 L 40-54 % Mean Corpuscular Volume 92 80-99 fL Mean Corpuscular Hemoglobin 31 25-34 pg Mean Corpuscular Hemoglobin Concent 34 32-36 g/dL Red Cell Distribution Width 12.2 10.0-14.5 % Platelet Count 197 130-400 10^3/uL Mean Platelet Volume 9.0 9.0-12.2 fL Immature Granulocyte % (Auto) 1 % Neutrophils (%) (Auto) 59 42-75 % Lymphocytes (%) (Auto) 25 12-44 % Monocytes (%) (Auto) 12 0-12 % Eosinophils (%) (Auto) 4 0-10 % Basophils (%) (Auto) 1 0-10 % Neutrophils # (Auto) 3.1 1.8-7.8 10^3/uL Lymphocytes # (Auto) 1.3 1.0-4.0 10^3/uL Monocytes # (Auto) 0.6 0.0-1.0 10^3/uL Eosinophils # (Auto) 0.2 0.0-0.3 10^3/uL Basophils # (Auto) 0.0 0.0-0.1 10^3/uL Immature Granulocyte # (Auto) 0.0 0.0-0.1 10^3/uL Prothrombin Time 13.0 12.2-14.7 SEC INR Comment 0.9 0.8-1.4 Activated Partial Thromboplast Time 27 24-35 SEC D-Dimer 1.44 H 0.00-0.49 UG/ML Sodium Level 133 L 135-145 MMOL/L Potassium Level 3.3 L 3.6-5.0 MMOL/L Chloride Level 96 L 98-107 MMOL/L Carbon Dioxide Level 29 21-32 MMOL/L Anion Gap 8 5-14 MMOL/L Blood Urea Nitrogen 15 7-18 MG/DL Creatinine 0.87 0.60-1.30 MG/DL Estimat Glomerular Filtration Rate 102 BUN/Creatinine Ratio 17 Glucose Level 118 H 70-105 MG/DL Lactic Acid Level 2.38 *H 0.50-2.00 MMOL/L Calcium Level 9.0 8.5-10.1 MG/DL Corrected Calcium 9.6 8.5-10.1 MG/DL Total Bilirubin 0.5 0.1-1.0 MG/DL Aspartate Amino Transf (AST/SGOT) 56 H 5-34 U/L Alanine Aminotransferase (ALT/SGPT) 58 H 0-55 U/L Alkaline Phosphatase 75 40-136 U/L C-Reactive Protein 3.94 H <0.50 MG/DL Total Protein 7.4 6.4-8.2 GM/DL Albumin 3.3 3.2-4.5 GM/DL My Orders Orders - EILEEN CAIN MD Cbc With Automated Diff (09/22/21 09:31) Comprehensive Metabolic Panel (09/22/21 09:31) Blood Culture (09/22/21 09:31) Ed Iv/Invasive Line Start (09/22/21 09:31) Crp Fs (09/22/21 09:31) Lactic Acid Analyzer (09/22/21 09:31) Fibrin Degradation Products (09/22/21:31) Protime With Inr (09/22/21 09:31) Partial Thromboplastin Time (09/22/21 09:31) Foot 3 View Left (09/22/21 09:32) Clindamycin 600 Mg/50 Ml Ivpb (Cleocin P (09/22/21 09:32) Ns Iv 1000 Ml (Sodium Chloride 0.9%) (09/22/21 09:32) Ketorolac Injection (Toradol Injection) (09/22/21 09:32) Ns Iv 1000 Ml (Sodium Chloride 0.9%) (09/22/21 09:56) Clindamycin 600 Mg/50 Ml Ivpb (Cleocin P (09/22/21 09:56) Ketorolac Injection (Toradol Injection) (09/22/21 09:56) Rivaroxaban Tablet (Xarelto Tablet) (09/22/21 11:29) Vital Signs/I&O 09/22/21 09/22/21 09:15 12:22 Temp 36.5 36.5 Pulse 104 104 Resp 16 16 B/P (MAP) 191/119 (143) 187/98 Pulse Ox 97 97 O2 Delivery Room Air Room Air Blood Pressure Mean: 143 Progress Progress Note #1: Progress Note Check labs and blood cultures as well as lactic acid. Since his heart rate is just under 100 bpm on my physical exam will administer normal saline 1 L IV fluid bolus for hydration. As he does have redness, swelling, increased warmth to his left lower extremity and reports stepping on glass (although there is no obvious wound to his foot), will give clindamycin 600 mg IV x1 as an antibiotic. Also order x-rays of the left foot since he reports stepping on glass. Toradol 30 mg IV since he says he has pain with walking/bearing weight and has tightness with the swelling. Progress Note #2: Time: 10:06 Progress Note White blood cell count is normal at 5.2. He had elevated CRP and his lactic acid was slightly elevated at 3.38. Coags were normal. Awaiting chemistry mills el and D-dimer. No obvious foreign body or bony abnormality seen on x-rays of the foot. Progress Note #3: Progress Note Chemistry panel did not show any acute significant abnormality. D-dimer was slightly elevated. Will cover patient with Xarelto oral anticoagulant until he can have ultrasound done tomorrow morning. Given outpatient order to have the test done. Counseled on how to call and set the test up. Advised about continuing antibiotics in the meantime as well. Counseled on follow-up and return precautions. Diagnostic Imaging Diagonstic Imaging: Xray Plain Films/CT/US/NM/MRI: other (left foot) Comments NAME: MARIO CHAMBERS MED REC#: [id number] PT STATUS: REG ER : 1965 PHYSICIAN: EILEEN CAIN MD ADMIT DATE: 09/22/21/ER FS Draft Date of Exam:09/22/21 FOOT 3 VIEW LEFT INDICATION: Swelling and redness, stepped on glass. COMPARISON: None available. TECHNIQUE: Three radiographs of the left foot dated 09/22/2021. FINDINGS: No acute fracture or dislocation. Mild scattered degenerative changes, greatest involving the 1st MTP joint, with joint space narrowing and sclerosis of the articular surfaces. The Lisfranc joint appears well aligned. No suspicious radiopaque foreign body. IMPRESSION: No acute osseous abnormality with mild degenerative changes. No evidence of osseous destruction. No suspicious radiopaque foreign body. Of note, many times glass is not radiopaque. Dictated on workstation # [id number] Dict: 09/22/21 0952 Trans: 09/22/21 1000 [id number] Interpreted by: HECTOR SHEPHERD MD Electronically signed by: Reviewed: Reviewed by Me Departure Impression Primary Impression: Cellulitis of left lower extremity Additional Impressions: Elevated d-dimer Pain and swelling of left lower extremity Disposition: 01 HOME, SELF-CARE Condition: Stable Departure-Patient Inst. Decision time for Depature: 12:04 Referrals: MATT OLSON MD (PCP) Primary Care Physician Patient Instructions: Cellulitis (Skin Infection), Adult ED, Deep Vein Thrombosis (DVT) ED Add. Discharge Instructions: Take the Clindamycin antibiotic to treat for cellulitis or skin infection of the left leg. Since you also had an elevated D-Dimer which is nonspecific evidence of clot formation in your blood vessels. To further evaluate this you need an ultrasound. In the meantime we are treating you with a blood thinner that would treat and dissolve the blood clot if one was there until we know for sure. Your next dose of blood thinner would be due about 10 pm tonight and then 10 am tomorrow morning. In the morning and you would need to call to get the ultrasound scheduled. You may call [facility] at [phone] around 8 am when they first start answering the phone, and let them know that you have an order for an ultrasound to see if Sonia could do the test for you tomorrow. Your other option is to call the radiology scheduling in [facility] at [phone]. You will need to call them between 7 and 7:30 in the morning and let them know that you have an ultrasound that needs to be scheduled. Try to keep your leg elevated above waist level to help with swelling and pain. If the redness and swelling continues to worsen instead of improving with antibiotic you would need to be seen again as you may need admitted for IV ant ibiotics. If the ultrasound does show a blood clot and you will need to continue on blood thinners to fully treat the DVT. This usually would be a minimum of 3 to 6 months. All discharge instructions reviewed with patient and/or family. Voiced understanding. Scripts Clindamycin HCl (Clindamycin HCl) 300 Mg Capsule 300 MG PO Q6H for Cellulitis for 10 Days, #40 CAP 0 Refills Prov: EILEEN CAIN MD 09/22/21 Rivaroxaban (XARELTO TABLET) 15 Mg Tablet 15 MG PO BID for DVT/Elevated D dimer for 1 Day, #2 TAB 0 Refills Prov: EILEEN CAIN MD 09/22/21 EILEEN CAIN MD Sep 22, 2021 09:40
[2021-09-22 09:46] LABS: BASOPHILS % (AUTO) 1 % (0-10); EOSINOPHILS # (AUTO) 0.2 10^3/uL (0.0-0.3); EOSINOPHILS % (AUTO) 4 % (0-10); HEMATOCRIT 34 % (40-54); HEMOGLOBIN 11.6 g/dL (13.3-17.7); LYMPHOCYTES # (AUTO) 1.3 10^3/uL (1.0-4.0); LYMPHOCYTES % (AUTO) 25 % (12-44); MEAN CORPUSCULAR HEMOGLOBIN 31 pg (25-34); MEAN CORPUSCULAR HGB CONC 34 g/dL (32-36); MEAN CORPUSCULAR VOLUME 92 fL (80-99); MONOCYTES # (AUTO) 0.6 10^3/uL (0.0-1.0); MONOCYTES % (AUTO) 12 % (0-12); NEUTROPHILS # (AUTO) 3.1 10^3/uL (1.8-7.8); NEUTROPHILS % (AUTO) 59 % (42-75); PLATELET COUNT 197 10^3/uL (130-400); WHITE BLOOD COUNT 5.2 10^3/uL (4.3-11.0)
[2021-09-22] MEDS ORDERED: CLINDAMYCIN 600 MG/50 ML IVPB 50 ML IV ONE (09:56)
[2021-09-22] MEDS ORDERED: KETOROLAC 30 MG/ML VIAL ONE (09:56)
[2021-09-22] MEDS ORDERED: NS IV 1000 ML 1,000 ML ONE (09:56)
--- NOTE | 2021-09-22 10:01 | Diagnostic Imaging Report ---
INDICATION: Swelling and redness, stepped on glass. COMPARISON: None available. TECHNIQUE: Three radiographs of the left foot dated 09/22/2021. FINDINGS: No acute fracture or dislocation. Mild scattered degenerative changes, greatest involving the 1st MTP joint, with joint space narrowing and sclerosis of the articular surfaces. The Lisfranc joint appears well aligned. No suspicious radiopaque foreign body. IMPRESSION: No acute osseous abnormality with mild degenerative changes. No evidence of osseous destruction. No suspicious radiopaque foreign body. Of note, many times glass is not radiopaque. Dictated by: Dictated on workstation # [id number]
[2021-09-22 10:03] LABS: INR 0.9 (0.8-1.4)
[2021-09-22 10:05] LABS: POTASSIUM 3.3 MMOL/L (3.6-5.0)
[2021-09-22 10:06] LABS: ALBUMIN 3.3 GM/DL (3.2-4.5); BILIRUBIN,TOTAL 0.5 MG/DL (0.1-1.0); CREATININE SERUM 0.87 MG/DL (0.60-1.30); TOTAL PROTEIN 7.4 GM/DL (6.4-8.2)
[2021-09-22 10:11] LABS: FIBRIN DEGRADATION PRODUCTS 1.44 UG/ML (0.00-0.49)
[2021-09-22] MEDS ORDERED: RIVAROXABAN 15 MG TABLET (XARELTO) PO STA (11:29)
[2021-09-22] MEDS ORDERED: RIVA15TA2 PO (12:12)
[2021-09-22] MEDS ORDERED: CLIN-144 PO (12:13)
[2021-09-22 12:22] VITALS: BP 187/98
== END 2021-09-22 12:22 | disposition home or self-care (01) ==
LOC: EDUNIT# 09:13 → ER FS 09:14
DX: L03.116 Cellulitis of left lower limb (principal); R79.1 Abnormal coagulation profile; R79.82 Elevated C-reactive protein (CRP); R74.02 Elevation of levels of lactic acid dehydrogenase [LDH]; F17.210 Nicotine dependence, cigarettes, uncomplicated; Z28.310 Unvaccinated for COVID-19
CPT/HCPCS: 36415; 73630; 80053; 83605; 85025; 85379; 85610; 85730; 86141; 87040

== ENCOUNTER → 2022-04-08 | Outpatient (CLI) | payer MEDICAID ==
[~2022-04-08] MED LIST: CLIN-144 PO; RIVA15TA2 PO
--- NOTE | 2022-04-08 16:58 | Diagnostic Imaging Report ---
INDICATION: Shortness of air. COMPARISON: None available. TECHNIQUE: 2 radiographs of the chest dated 04/08/2022. FINDINGS: The cardiac silhouette is within normal limits in size. No significant pulmonary vascular congestion. Elevation of the left hemidiaphragm. This is associated with minimal left basilar opacities. The right lung appears clear. No significant pleural effusion. No pneumothorax. No acute osseous abnormality with scattered osseous degenerative changes present. IMPRESSION: Minimal left basilar atelectasis and/or pneumonitis with associated elevation of the left hemidiaphragm. Dictated by: Dictated on workstation # [id number]
== END ==
LOC: RAD FS 10:29
PROVIDERS: ATTEND Family Medicine
DX: R06.02 Shortness of breath (principal)
CPT/HCPCS: 71046

== ENCOUNTER → 2022-05-06 | Outpatient (CLI) | payer MEDICAID ==
--- NOTE | 2022-05-06 17:03 | Diagnostic Imaging Report ---
INDICATION: Abdominal distention. Fullness. COMPARISON: None. FINDINGS: Two frontal supine radiographic views of the abdomen were obtained. A few mildly prominent air-filled loops of small bowel are noted. There is no large collection of free intraperitoneal air. Moderate air and stool are also noted scattered about the ascending and transverse colon. No unexpected extra osseous calcifications or radiopaque foreign bodies are seen. Severe destructive changes to the right hip are noted and appear chronic. IMPRESSION: 1. There are a few mildly prominent air-filled loops small bowel but no convincing evidence of obstruction. 2. Moderate colonic air and stool. Please correlate for constipation. Dictated by: Dictated on workstation # [id number]
== END ==
LOC: RAD FS 10:12
PROVIDERS: ATTEND Family Medicine
DX: R19.8 Other specified symptoms and signs involving the digestive system and abdomen (principal)
CPT/HCPCS: 74018